=== PATIENT | female | born 1960 | race Caucasian/White ===

== ENCOUNTER 2025-05-07 09:49 | Outpatient (AMB) | payer MEDICARE, BC, SELFPAY ==
--- NOTE | 2025-05-07 10:04 | A.OFFVIS_ITS ---
Vital Signs 05/07/25 10:11 Height 5 ft 2 in Weight 160 lb BMI 29.3 BP 126/74 Blood Pressure Location Rt brachial Position Sitting Pulse 64 Pulse Source Pulse Oximeter Pulse Oximetry (%) 96 Oxygen Delivery Method Room Air Intake Visit Reasons: ENP - Snoring, Apneic Spells Intake Note: Patient presents MANAGER OF CARE Snoring. Patient states snoring but no witnessed apnea/gasping. Can fall sleep easily, fatigued through out the day. Nape during the day 10-30min. Goes to bed at 11-12 wakes up 6-7am. No history of sleep studies. Accompanied by: Self / Same As Patient Allergies No Known Allergies Allergy (Verified 05/07/25 10:13) HPI Comments Details: 64 year old female presents for an evaluation of sleep apnea, she is referred to us by her PCP, Mona Maradiaga. She goes to bed at 11pm to midnight and wakes up at 5-6am, she has 2x bathroom breaks. She snores loudly and denies apneas. She denies morning headaches, she has bruxism, and denies clenching of the jaw. 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 She has been in country [place] 1 week and since then notices her sleep schedule is off. She falls asleep easily and takes naps daily about 15min to 30min. She denies anxiety, can be stressed with over thinking. Her mood is generally good. BP is better managed now. 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 She has chronic low back pain and sciatica. Memory is stable. Diet is stable. She walks daily, goes to the [employer], does yoga and melissa-chi every week. FORMERLY [facility] Medical History Personal history of radiation exposure Follicular lesion of thyroid Low back pain with left-sided sciatica Dyslipidemia Osteopenia Bunion High cholesterol HTN (hypertension) Daytime somnolence Tubular adenoma of colon Multinodular thyroid Family history of cancer Acquired hypothyroidism Thyroid nodule Vitamin D deficiency Surgical History H/O partial thyroidectomy Family History Mother Pancreatic cancer HTN (hypertension) Social History Alcohol intake: never Patient Tobacco Use Status: Former Tobacco user e-Cigarette/Vaping Use: Never Used Physical Exam Vital Signs: Last Vital Signs Pulse 64 05/07/25 10:11 BP 126/74 05/07/25 10:11 Pulse Ox 96 05/07/25 10:11 Oxygen Delivery Method Room Air 05/07/25 10:11 BMI result Body Mass Index 29.3 Const General: cooperative, comfortable and no acute distress Nutritional Appearance: overweight Orientation/consciousness: patient oriented x3 HEENT Face and sinus: Yes face symmetric Teeth and gingiva: other (mallampti score is 3) Eyes Pupils: Equal, round and reactive pupils present Neck Neck: Yes full ROM Resp Effort & Inspection: normal respiratory effort and able to speak in complete sentences Neuro General: patient oriented x3 and moves all extremities Cranial nerves: Yes Equal, round and reactive pupils present, Yes Normal accommodation reflex present, Yes Normal facial strength present, Yes Midline tongue present, Yes Ability to bilaterally rotate head present and Yes Ability to bilaterally elevate shoulders present Cognition (Neuro): normal cognition Motor exam (neuro): 5/5 motor strength present throughout and Normal motor muscle tone present throughout Psych Appearance: grossly normal Thought process: Normal thought process present Assessment & Plan Assessment & Plan (1) Excessive daytime sleepiness: Code(s): G47.19 - Other hypersomnia Category: Medical (2) Chronic lower back pain: Code(s): M54.50 - Low back pain, unspecified; G89.29 - Other chronic pain Category: Medical Qualifiers: Back pain laterality: unspecified Sciatica presence: with sciatica Sciatica laterality: sciatica of left side Qualified Code(s): M54.42 - Lumbago with sciatica, left side; G89.29 - Other chronic pain Plan HST r/o chente Labs r/o deficiencies Low back pain / L>r Orders: Orders RT home sleep study Today G47.19 - Other hypersomnia Comprehensive Met. Panel Today G47.19 - Other hypersomnia Homocysteine Today G47.19 - Other hypersomnia, G47.9 - Sleep disorder, unspecified, R53.83 - Other fatigue Vitamin D 25-OH Total Today G47.19 - Other hypersomnia Vitamin B12 and Folate Today G47.19 - Other hypersomnia TSH reflex Free T4 Today G47.19 - Other hypersomnia Complete Blood Count no Diff Today G47.19 - Other hypersomnia Ferritin Today G47.19 - Other hypersomnia Methylmalonic Acid Today G47.19 - Other hypersomnia, G47.9 - Sleep disorder, unspecified, R53.83 - Other fatigue Patient Instructions: Please complete the following fasting labs to rule out deficiencies. CBC/CMP/ B12/ Vit D/ TSH/ Homocysteine and MMA/ Ferritin. Sleep Hygiene provided: set a scheduled bedtime and wake time to help regulate t he circadian rhythm and balance the release of pituitary hormones. Sleep in a dark room, temperatures below 68 degrees, and no devices n bed. Limit caffeinated products 6 hours prior to bed, and limit fluids 2-4 hours prior to bed. Gentle night yoga, diffusing essential oils, and playing soft music can be relaxing. Coding Level of Care Code New Pt Level 4 (01226) Diagnoses Excessive daytime sleepiness G47.19 Chronic low back pain with left-sided sciatica, unspecified back pain laterality M54.42; G89.29 Back pain laterality: unspecified Sciatica presence: with sciatica Sciatica laterality: sciatica of left side Sleep Questionnaire Difficulty falling asleep: No Difficulty staying asleep?: Yes Number of arousals: 4 Snoring: Yes Witnessed apneas: No Gasping arousals: No Nocturia: No GERD: Yes Vivid dreams: Yes Acting out dreams: No Abnormal behavior in sleep: No Abnormal movements in sleep: No Morning headaches: No Excessive daytime sleepiness: Yes Daytime naps: Yes Restless legs: No Hallucinations: No Sleep paralysis: No Drop attacks: No Sleep Study: No CPAP: No
[2025-05-07 10:11] VITALS: BP 126/74; PULSE 64; O2SAT 96; BMI 29.3
--- OUTSIDE RECORDS SUMMARY | 2025-05-07 11:14 | XMS_ITS | Encounter Summary ---
Author Organization [facility] Address [address] [place] [address] Care Team Providers Care Logistics Administrator Name Role Phone Morgan Harris MD Primary Care Provider Loreta vailable Grace Cespedes DO Primary Care Pro vider Unavailable Encounter Details Date Type Department Care Team Description 12/27/2012 Physician Office Clin Asst Report Medical Records [address] [place] [address] Fredi De León DPM Social History Tobacco Use Types Packs/Day Years Used Date Smoking Tobacco: Former Cigarettes 0.3 Q uit: 02/16/1996 Smokeless Tobacco: Never Alcohol Use Standard Drinks/Week Comments No 0 (1 standard drink = 0.6 oz pur e alcohol) Sex Assigned at Date Recorded Not on file Job Start Date Occupation Industry Not on file Not on file Not on file documented as of this encounter Plan of Treatment Not on file documented as of this encounter Visit Diagnoses Not on filedocumented in this encounter Care Teams Logistics Administrator Relationship Specialty Start Date End Date Morgan Harris MD PCP - General Internal Medicine 09/25/11 01/08/14 Grace Cespedes DO PCP - General Internal Medicine 01/09/14 documented as of this encounter
--- OUTSIDE RECORDS SUMMARY | 2025-05-07 11:14 | XMS_ITS | Encounter Summary ---
Author Organization [facility] Address [address] [place] [address] Care Team Providers Care Monitor Tech Name Role Phone Grace Cespedes DO Primary Care Pro vider Unavailable Encounter Details Date Type Department Care Team Description 08/18/2020 Pt. Non Urgent Medical Question Adult Urgent Care - [address] [address] Fred Hinds MD Social History Tobacco Use Types Packs/Day Years Used Date Smoking Tobacco: Former Cigarettes 0.3 Q uit: 02/16/1996 Smokeless Tobacco: Never Alcohol Use Standard Drinks/Week Comments No 0 (1 standard drink = 0.6 oz pur e alcohol) Sex Assigned at Date Recorded Not on file Job Start Date Occupation Industry Not on file Not on file Not on file COVID-19 Exposure Response Date Recorded In the last month, have you been in contact with someone who was confirmed or suspected to have Coronavirus / COVID-19? No / Unsure 08/17/2020 9:20 AM EST documented as of this encounter Progress Notes * Katia Nielson M.A. - 08/19/2020 11:05 AM ESTFrom: Doalis Gavi To: Fred Hinds MD Sent: 08/18/2020 7:15 PM EST Subject: appointment change This massage is to Endocrinology Department Attn: Yissel I would like to keep my appointment with on August 29 at 4PM. I prefer audio chandrakant. You can reach me under my cell phone - # [phone] Thank you. Gavi Jacobo documented in this encounter Plan of Treatment Not on file documented as of this encounter Visit Diagnoses Not on filedocumented in this encounter Care Teams Monitor Tech Relationship Specialty Start Date End Date Grace Cespedes DO PCP - General Internal Medicine 01/09/14 documented as of this encounter
--- OUTSIDE RECORDS SUMMARY | 2025-05-07 11:14 | XMS_ITS | Encounter Summary ---
Author Organization [facility] Address [address] [place] [address] Care Team Providers Care Brush Fabrication Supervisor Name Role Phone Grace Cespedes DO Primary Care Pro vider Unavailable Reason for Visit * Reason Comments E-prescribe Rx Request Encounter Details Date Type Department Care Team Description 11/17/2020 Refill Adult Medicine [address] [address] Grace Cespedes DO E-prescribe Rx Request Social History Tobacco Use Types Packs/Day Years Used Date Smoking Tobacco: Former Cigarettes 0.3 Q uit: 02/16/1996 Smokeless Tobacco: Never Alcohol Use Standard Drinks/Week Comments No 0 (1 standard drink = 0.6 oz pur e alcohol) Sex Assigned at Date Recorded Not on file Job Start Date Occupation Industry Not on file Not on file Not on file documented as of this encounter Miscellaneous Notes * Telephone Encounter - Stefani Lai M.A. - 11/19/2020 2:19 PM EDT Lab Results Component Value Date NA 140 08/17/2020 K 4.5 08/17/2020 CO2 28 08/17/2020 CL 106 08/17/2020 BUN 15 08/17/2020 CREAT 0.76 08/17/2020 GLU 82 08/17/2020 CA 9.4 08/17/2020 GFR > 60 08/17/2020 Pending appt 01/03/21 * Telephone Encounter - Yunicee Garner - 11/18/2020 9:23 AM EDT Patient would like script to be: E-PRESCRIBED/FAXED TO PHARMACY WHEN WAS THE PATIENT'S LAST APPOINTMENT IN ADULT MEDICINE? 05/24/20 WHEN WAS THE LAST TIME THE PATIENT SAW THEIR PCP? Same as above Does patient have an upcoming appointment? Yes 01/03/21 (THE MEDICATION REQUESTED IS ON THE MED LIST ABOVE) All of the medications requested were on the CURRENT MEDS list Did you check the Pharmacy information above?: YES Patient wants: 90 -day supply Is this a mail order prescription request ? NO If the refill is from a FAXED refill request what is the RX # listed on the fax? N/A Patients current insurance carrier is: Payor: SARIAH/DEJA POS / Plan: PPO $30 [employer] [id number] / ProductType: PPO [id number] documented in this encounter Plan of Treatment Not on file documented as of this encounter Visit Diagnoses Not on filedocumented in this encounter Care Teams Brush Fabrication Supervisor Relationship Specialty Start Date End Date Grace Cespedes DO PCP - General Internal Medicine 01/09/14 documented as of this encounter
--- OUTSIDE RECORDS SUMMARY | 2025-05-07 11:14 | XMS_ITS | Encounter Summary ---
Author Organization [facility] Address [address] [place] [address] Care Team Providers Care [employer] Advisor Name Role Phone Grace Cespedes DO Primary Care Pro vider Unavailable Encounter Details Date Type Department Care Team Description 04/14/2019 Release of Information Medical Records [address] [place] [id number] Abstract, Provider Social History Tobacco Use Types Packs/Day Years [...] on filedocumented in this encounter Care Teams [employer] Advisor Relationship Specialty Start Date End Date Grace Cespedes DO PCP - General Internal Medicine 01/09/14 documented as of this encounter
--- OUTSIDE RECORDS SUMMARY | 2025-05-07 11:14 | XMS_ITS | Encounter Summary ---
Author Organization [facility] Address [address] [place] [address] Care Team Providers Care Supervisor Riveting Name Role Phone Grace Cespedes DO Primary Care Pro vider Unavailable Encounter Details Date Type Department Care Team Description 03/02/2014 Orders Only Adult Medicine [address] [address] Grace Cespedes DO Dyslipidemia (Primary Dx) Social History Tobacco Use Types Packs/Day Years [...] documented as of this encounter Visit Diagnoses Diagnosis Dyslipidemia- Primary Other and unspecified hyperlipidemia documented in this encounter Care Teams Supervisor Riveting Relationship Specialty Start Date End Date Grace Cespedes DO PCP - General Internal Medicine 01/09/14 documented as of this encounter
--- OUTSIDE RECORDS SUMMARY | 2025-05-07 11:14 | XMS_ITS | Encounter Summary ---
Author Organization [facility] Address [address] [place] [address] Care Team Providers Care Combustion Analyst Name Role Phone Morgan Harris MD Primary Care Provider Loreta vailable Grace Cespedes DO Primary Care Pro vider Unavailable Encounter Details Date Type Department Care Team Description 12/13/2012 Readiness Paraprofessional Report Medical Records [address] [place] [address] Fredi De León DPM Social History Tobacco [...] on filedocumented in this encounter Care Teams Combustion Analyst Relationship Specialty Start Date End Date Morgan Harris MD PCP - General Internal Medicine 09/25/11 01/08/14 Grace Cespedes DO PCP - General Internal Medicine 01/09/14 documented as of this encounter
--- OUTSIDE RECORDS SUMMARY | 2025-05-07 11:14 | XMS_ITS | Clinical Summary ---
Author Organization [facility] Address [address] [place] [address] Care Team Providers Care Excelsior Machine Tender Name Role Phone Grace Cespedes DO Primary Care Pro vider Unavailable Allergies No known active allergies Medications Medication Sig Dispensed Refills Start Date End Date Status hydrochlorothiazide (MICROZIDE) 12.5 MG capsule TAKE 1 CAPSULE BY MOUTH EVERY DAY 90 capsule 1 02/12/2021 Active atenolol (TENORMIN) 50 MG tablet TAKE 1 TABLET BY MOUTH TWICE A DAY 180 tablet 1 02/25/2021 Active levothyroxine (SYNTHROID, LEVOTHROID) 25 MCG tablet Take 1 tablet by mouth daily for 120 days. 90 tablet 3 02/25/2021 Active Dguqmah-Quiieguwgj-A itamin D (Vitamin D3/Calcium/Phosphoru s) 120-100-78 UNIT-MG TabIndications:Histo ry of osteopenia,History of vitamin D deficiency Take 1 Tablet by mouth daily. 90 Tablet 3 01/25/2024 Active omeprazole (PRILOSEC) 20 MG capsule Take 1 Capsule by mouth 2 times daily for 14 days. 28 Capsule 0 05/26/2024 Active Active Problems Problem Noted Date Ganglion cyst of wrist, left 11/29/2018 Last Assessment & Plan: Referred to Gen Surg for discussion of surgical removal. Multinodular goiter 05/20/2018 Family history of cancer- genetic testin g negative 201405/15/2018 Osteopenia 09/02/2016 Essential hypertension, benign 6 Last Assessment & Plan: Has appt for follow up in April with Dr. Carey and can keep this appt. Vitamin D deficiency Dyslipidemia Resolved Problems Problem Noted Date Resolved Date Family history of pancreatic cancer 11/15/2014 05/15/2018 Family history of ovarian cancer 11/15/2014 05/15/2018 Family history of liver cancer 11/15/2014 1 Special screening for malignant neoplasms, colon 09/23/2009 05/15/2018 Overview: Negative colonoscopy 09/23/2009, no colon cancer screening needed for 10 years. Colaris negative Subserous leiomyoma of uterus 12/21/2005 Hypertension 08/22/2013 Immunizations Name Administration Dates Next Due Tdap 05/23/2009 Family History Medical History Relation Name Comments well Father CA of Pancreas Mother Cancer of the Pancreas Mother Uterine Cancer Mother's side 1 Aunt CA Liver Mother's side 2 aunt CA Lung Mother's side 3 Uncle CA Lung Mother's side 4 Aunt CA Breast Other mat aunt CA Colon Negative Hx CA Ovarian Negative Hx Cancer of the Prostate Negative Hx Relation Name Status Comments Father Mother Mother's side 1 Mother's side 2 Mother's side 3 Mother's side 4 Other mat aunt Social History Tobacco Use Types Packs/Day Years Used Date Smoking Tobacco: Former Cigarettes 0.3 Q uit: 02/16/1996 Smokeless Tobacco: Never Tobacco Cessation:Counseling Given: Not Answered Alcohol Use Standard Drinks/Week Comments No 0 (1 standard drink = 0.6 oz pur e alcohol) Sex Assigned at Date Recorded Not on file Job Start Date Occupation Industry Not on file Not on file Not on file Last Filed Vital Signs Vital Sign Reading Time Taken Comments Blood Pressure 122/75 05/09/2024 1:01 PM EDT Pulse 82 05/09/2024 1:01 PM EDT Temperature 36.4 C (97.6 F) 09/17/2023 9:11 AM EST Respiratory Rate 12 12/14/2022 3:06 PM EDT Oxygen Saturation 98% 05/09/2024 1:01 PM EDT Inhaled Oxygen Concentration - - Weight 70.8 kg (156 lb) 05/09/2024 1:01 PM EDT Height 160 cm (5' 3 ) 05/09/2024 1:01 PM EDT Body Mass Index 27.63 05/09/2024 1:01 PM EDT Plan of Treatment Health Maintenance Due Date Last Done Comments Covid-19 Vaccine (#1) 06/04/1961 DEPRESSION SCREEN 1970 SHINGLES VACCINE (1 of 2) 2008 DTAP/TDAP/TD (2 - Td or Tdap) 05/23/2019 05/23/2009 FALL RISK ASSESSMENT 12/03/2023 PNEUMOCOCCAL VACCINE (1 - PCV) 12/03/2023 BMI CHECK/ADVISE 08/02/2024 01/25/2024, , 12/14/2022, Additional history exists MAMMOGRAM 01/13/2025 01/14/2024, 09/2022, 12/25/2021, Additional history exists INFLUENZA (#1) 2025 04/16/2020 (Refu sed), 10/04/2017 (Refused) COLON CANCER SCREENING 05/29/2025 0 (Completed), 05/29/2020, 09/23/2009 CHOLESTEROL SCREENING 08/17/2025 08/17/2020 , 04/18/2020, 04/08/2019, Additional history exists BONE DENSITY SCREENING 01/05/2027 01/05/2022, 2015 HEPATITIS C SCREENING Completed 12/20/2012 Care Teams Excelsior Machine Tender Relationship Specialty Start Date End Date Grace Cespedes DO PCP - General Internal Medicine 01/09/14
--- OUTSIDE RECORDS SUMMARY | 2025-05-07 11:14 | XMS_ITS | Encounter Summary ---
Author Organization [facility] Address [address] [place] [address] Care Team Providers Care Refueling Ramp Supervisor Name Role Phone Morgan Harris MD Primary Care Provider Loreta vailable Grace Cespedes DO Primary Care Pro vider Unavailable Encounter Details Date Type Department Care Team Description 06/28/2013 Orders Only Adult Medicine [address] [address] Grace Cespedes DO Vitamin d deficiency (Primary Dx) Social History Tobacco Use Types [...] as of this encounter Visit Diagnoses Diagnosis Vitamin D deficiency- Primary Unspecified vitamin D deficiency documented in this encounter Care Teams Refueling Ramp Supervisor Relationship Specialty Start Date End Date Morgan Harris MD PCP - General Internal Medicine 09/25/11 01/08/14 Grace Cespedes DO PCP - General Internal Medicine 01/09/14 documented as of this encounter
--- OUTSIDE RECORDS SUMMARY | 2025-05-07 11:14 | XMS_ITS | Encounter Summary ---
Author Organization [facility] Address [address] [place] [address] Care Team Providers Care Seed Laboratory Technician Name Role Phone Grace Cespedes DO Primary Care Pro vider Unavailable Encounter Details Date Type Department Care Team Description 05/31/2020 Orders Only Medical Records [address] [place] [address] Claudia Morse MD Social History Tobacco Use Types Packs/Day [...] have Coronavirus / COVID-19? No / Unsure 05/30/2020 3:24 PM EDT documented as of this encounter Plan of Treatment Not on file documented as of this encounter Procedures Procedure Name Priority Date/Time Associated Diagnosis Comments OUTSIDE PATHOLOGY Routine 05/29/2020 documented in this encounter Results * OUTSIDE PATHOLOGY (05/29/2020) Claudia Morse MD OUTSIDE LAB documented in this encounter Visit Diagnoses Not on filedocumented in this encounter Care Teams Seed Laboratory Technician Relationship Specialty Start Date End Date Grace Cespedes DO PCP - General Internal Medicine 01/09/14 documented as of this encounter
--- OUTSIDE RECORDS SUMMARY | 2025-05-07 11:14 | XMS_ITS | Encounter Summary ---
Author Organization [facility] Address [address] [place] [address] Care Team Providers Care Watermelon Harvesting Supervisor Name Role Phone Grace Cespedes DO Primary Care Pro vider Unavailable Reason for Visit * Reason Comments E-prescribe Rx Request Encounter Details Date Type Department Care Team Description 03/19/2020 Refill Adult Medicine [address] [address] Grace Cespedes DO E-prescribe Rx Request Social [...] encounter Miscellaneous Notes * Telephone Encounter - Cinthya Washington L.P.N. - 03/19/2020 1:24 PM EDT Per your office note 11/28, pt was to increase to 50mg daily Lab Results Component Value Date NA 139 10/24/2019 K 4.6 10/24/2019 CO2 23 10/24/2019 CL 105 10/24/2019 BUN 14 10/24/2019 CREAT 0.82 10/24/2019 GLU 82 10/24/2019 CA 10.2 10/24/2019 GFR > 60 10/24/2019 * Telephone Encounter - Kalee George - 03/19/2020 8:03 AM EDT Patient would like script to be: E-PRESCRIBED/FAXED TO PHARMACY WHEN WAS THE PATIENT'S LAST APPOINTMENT IN ADULT MEDICINE? 11/29/2019 WHEN WAS THE LAST TIME THE PATIENT SAW THEIR PCP? Same as above Does patient have an upcoming appointment? Yes 04/16/2020 (THE MEDICATION REQUESTED IS ON THE MED [...] N/A Patients current insurance carrier is: Payor: [employer] / Plan: PPO $30 [employer] [id number] / Product Type: PPO [id number] documented in this encounter Plan of Treatment Not on file documented as of this encounter Visit Diagnoses Not on filedocumented in this encounter Care Teams Watermelon Harvesting Supervisor Relationship Specialty Start Date End Date Grace Cespedes DO PCP - General Internal Medicine 01/09/14 documented as of this encounter
--- OUTSIDE RECORDS SUMMARY | 2025-05-07 11:14 | XMS_ITS | Encounter Summary ---
Author Organization [facility] Address [address] [place] [address] Care Team Providers Care Remote Inpatient Coder Name Role Phone Grace Ghotra DO Primary Care Pro vider Reason for Visit * Reason Onset Date Comments special procedure 03/22/2025 Encounter Details Date Type Department Care Team ([facility] st Contact Info) Description 03/22/2025 Telephone Gastroenterology - [place] 175 [facility] 175 [facility] [address] [place] [phone] Brooklynn Dan NP 175 [facility] [address] [place] [address] Social History Tobacco Use Types Packs/Day Years Used Date Smoking Tobacco: Former Cigarettes Q uit: 02/16/1996 Smokeless Tobacco: Never Alcohol Use Standard Drinks/Week Comments No 0 (1 standard drink = 0.6 oz pur e alcohol) Comments No Sex and Gender Information Value Date Recorded Sex Assigned at Not on file Legal Sex Female 8:54 PM EST Gender Identity Not on file Sexual Orientation Not on file documented as of this encounter Progress Notes * Sushil Barnes - 05/03/2025 1:49 PM EDT SCHEDULED * Karlee Rosales - 05/03/2025 11:01 AM EDT Patient is returning call to schedule colonoscopy * Radha Garrett MA - 03/29/2025 8:44 AM EDT 3rd attempt to schedule an appointment patient left message to call back and letter sent * Shoshana Browne MA - 03/27/2025 10:57 AM EDT 2nd attempt to schedule an appointment patient left message to call back * Radha Esrtella - 03/26/2025 10:14 AM EDT Patient calling again to schedule colonoscopy * Dviya Montoya - 03/26/2025 8:59 AM EDT Patient called back to schedule colonoscopy. * Sushil Barnes - 03/22/2025 1:23 PM EDT 1st attempt to schedule an appointment patient left message to call back HX OF POLYPS - ANY * Brooklynn Dan NP - 03/22/2025 12:48 PM EDT Please schedule surveillance colonoscopy for colon polyps to be completed sometimes in June 2025. Thank you. documented in this encounter Plan of Treatment Upcoming Encounters Date Type Department Care Team (Late st Contact Info) Description 06/18/2025 12:[address] [facility] Endoscopy [address] [place] [phone] Ana M Watson MD 175 [facility] [address] [place] [address] documented as of this encounter Goals Goal Patient Goal Type Associated Problems Recent Progress Patient-Stated? Author Autogenera marion Goal Care Plan Autogenerated Problem No HerbertAlicia hancockerine Curtis documented as of this encounter Visit Diagnoses Not on filedocumented in this encounter Additional Health Concerns Active Problems Noted Date Diagnosed Date Autogenerated Problem 05/03/2025 documented as of this encounter Care Teams Remote Inpatient Coder Relationship Specialty Start Date End Date Grace Ghotra DO [address] [phone] PCP - General Internal Medicine 01/09/14 documented as of this encounter
--- OUTSIDE RECORDS SUMMARY | 2025-05-07 11:14 | XMS_ITS | Encounter Summary ---
Author Organization [facility] Address [address] [place] [address] Care Team Providers Care Jute Bag Sewer Name Role Phone Grace Cespedes DO Primary Care Pro vider Unavailable Encounter Details Date Type Department Care Team Description 10/29/2019 Orders Only Adult Medicine [facility] [address] [place] [address] Fred Hinds MD Multinodular goiter (Primary Dx) Social History Tobacco Use Types [...] on file documented as of this encounter Results * TSH (03/05/2020 2:58 PM EDT) TSH 3.81 0.40 - 4.00 uIU/ml 03/05/2020 6:58 PM EDT [facility] 03/05/2020 2:58 PM EDT 03/05/2020 3:02 PM EDT Fred Hinds MD LAB [facility] documented in this encounter Visit Diagnoses Diagnosis Multinodular goiter- Primary Nontoxic multinodular goiter documented in this encounter Care Teams Jute Bag Sewer Relationship Specialty Start Date End Date Grace Cespedes DO PCP - General Internal Medicine 01/09/14 documented as of this encounter
--- OUTSIDE RECORDS SUMMARY | 2025-05-07 11:14 | XMS_ITS ---
Author Name [facility] ([place] [place]) Organization Unknown Care Team Organization Name Specialty Phone Email Start Date End Da te [facility] Loren Briceno Primary Care 06/09/2022 03/20/2024
--- OUTSIDE RECORDS SUMMARY | 2025-05-07 11:14 | XMS_ITS | Encounter Summary ---
Author Organization [facility] Address [address] [place] [address] Care Team Providers Care Wind Technician Name Role Phone Grace Cespedes DO Primary Care Pro vider Unavailable Reason for Referral * Non CLIFF (Routine) - Authorized/Booked Specialty Diagnoses / Procedures Referred By Mckenzie thomas Referred To Contact Endocrinology Procedures REFERRAL TO ENDOCRINOLOGY Grace Cespedes DO [address] [place] [address] [facility]/[address] [address] Referral ID Status Reason Start Date Expiration Date V isits Requested Visits Authorized [id number] Authorized/ Booked 10/18/2019 01/18/2020 1 1 Encounter Details Date Type Department Care Team Description 10/18/2019 Orders Only Adult Medicine [address] [address] Grace Cespedes DO Social History Tobacco Use Types Packs/Day Years [...] on filedocumented in this encounter Care Teams Wind Technician Relationship Specialty Start Date End Date Grace Cespedes DO PCP - General Internal Medicine 01/09/14 documented as of this encounter
--- OUTSIDE RECORDS SUMMARY | 2025-05-07 11:14 | XMS_ITS | Encounter Summary ---
Author Organization [facility] Address [address] [place] [address] Care Team Providers Care Clean Out Driller Name Role Phone Morgan Harris MD Primary Care Provider Loreta vailable Grace Cespedes DO Primary Care Pro vider Unavailable Encounter Details Date Type Department Care Team Description 10/30/2011 Release of Information Medical Records [address] [place] [phone] Abstract, Provider Social History Tobacco Use Types [...] on filedocumented in this encounter Care Teams Clean Out Driller Relationship Specialty Start Date End Date Morgan Harris MD PCP - General Internal Medicine 09/25/11 01/08/14 Grace Cespedes DO PCP - General Internal Medicine 01/09/14 documented as of this encounter
--- OUTSIDE RECORDS SUMMARY | 2025-05-07 11:15 | XMS_ITS | Clinical Summary ---
Author Organization [facility] [address] [place] [address] [place] [phone] Phone Care Team Providers Care Floorman Name Role Phone JosecarolinaGrace Lechuga DO Primary Care Pro vider Allergies No known active allergies Medications atenoloL (TENORMIN) 50 mg tablet Take 1 tablet (50 mg total) by mouth 2 (two) times a day. 02/25/2021 Active hydroCHLOROthia zide (MICROZIDE) 12.5 mg capsule Take 1 capsule (12.5 mg total) by mouth 1 (one) time each day. 02/12/2021 Active levothyroxine (SYNTHROID, LEVOTHROID) 25 mcg tablet Take 1 tablet (25 mcg total) by mouth 1 (one) time each day. for 120 days. 02/25/2021 Active Active Problems Problem Noted Date Diagnosed Date Vitamin D deficiency 07/05/2024 Dyslipidemia 07/05/2024 Ganglion cyst of wrist, left 11/29/2018 Overview (07/05/2024): Last Assessment & Plan: Referred to Gen Surg for discussion of surgical removal. Multinodular goiter 05/20/2018 Osteopenia 09/02/2016 Essential hypertension, benign 07/30/2006 Overview (07/05/2024): Last Assessment & Plan: Has appt for follow up in April with Dr. Carey and can keep this appt. Encounters Date Type Department Care Team Description 03/22/2025 9:20 AM EDT Office Visit Gastroenterology - [place] [address] [facility] [address] [place] [address] Brooklynn Dan NP History of Helicobacter pylori infection (Primary Dx); History of adenomatous polyp of colon; History of hemorrhoids 03/22/2025 Telephone Gastroenterology [facility] [address] [facility] [address] [place] [address] Brooklynn Dan NP from Last 3 Months Immunizations Immunization Administration Dates Next Due Tdap Tetanus diptheria acell ular pertussis (Boostrix; Adacel) 7yo and older 05/23/2009 Surgical History Surgery Date Site/Laterality Comments COLONOSCOPY 09/23/2009 PROCEDURE: [place] COLONOSCOPY FLX DX W/COLLJ SPEC WHEN PFRMD; COMMENT: Normal OTHER SURGICAL HISTORY PROCEDURE: HISTORICAL TOTAL HYSTERECTOMY W/O BSO; COMMENT: fibroids OTHER SURGICAL HISTORY 01/23/2019 Left PROCEDURE: [place] TOTAL THYROID LOBEC UNI W/CONTRALAT STOT LOBEC; COMMENT: jack BREAST BIOPSY 09/2015 Left PROCEDURE: BX BREAST; PERC NEEDLE CORE W/IMAG GUID; COMMENT: lt. fna-cyst COLONOSCOPY 05/29/2020 PROCEDURE: HISTORICAL COLONOSCOPY; COMMENT: recto-sigmoid jxn polyp - tubular adenoma HYSTERECTOMY Medical History Medical History Date Comments Special screening for malign ant neoplasms, colon 09/23/2009 DX:Special screening for mal ignant neoplasms, colon Hypertension DX:Hypertension Dyslipidemia DX:Dyslipidemia Vitamin D deficiency DX:Vitamin D deficiency Genetic screening DX:Genetic scr eening; COMMENT: reports normal in 2014 BRCA negative 2014 DX:BRCA negative Multinodular goiter 05/20/2018 DX:Multinodu lar goiter Family History Medical History Relation Name Comments Other: well Father Uterine cancer Mother's side 1 Aunt Liver cancer Mother's side 2 aunt Lung cancer Mother's side 3 Uncle Lung cancer Mother's side 4 Aunt Breast cancer Other mat aunt Colon cancer Neg Hx Ovarian cancer Neg Hx Prostate cancer Neg Hx Relation Name Status Comments Father Mother [...] on file Sexual Orientation Not on file Obstetrics History Para Term AB IAB SAB Ectopic Multiple Livin g Live Births 2 2 2 2 Date Outcome GA Total Labor Labor/2nd/3rd Weight Sex Type Anes PTL Azalia A1 A5 Name Clin Term Term Last Filed Vital Signs Vital Sign Reading Time Taken Comments Blood Pressure 138/70 03/22/2025 9:17 AM EDT Pulse 70 03/22/2025 9:17 AM EDT Temperature - - Respiratory Rate - - Oxygen Saturation 98% 03/22/2025 9:17 AM EDT Inhaled Oxygen Concentration - - Weight 73 kg (161 lb) 03/22/2025 9:17 AM EDT Height 160 cm (5' 3 ) 05/09/2024 1:01 PM EDT Body Mass Index 28.52 05/09/2024 1:01 PM EDT Plan of Treatment Upcoming Encounters Date Type Department Care Team (Late st Contact Info) Description 06/18/2025 12:15 PM EST Appointment [facility] Endoscopy [address] [place] [address] Ana M Watson MD 175 [facility] [address] [place] [address] Health Maintenance Due Date Last Done Comments Pneumococcal Vaccine: 50+ Years (1 of 1 - PCV) 2008 Zoster Vaccines (1 of 2) 2008 DTaP,Tdap,and Td Vaccines (2 - Td or Tdap) 05/23/2019 05/23/2009 Medicare Annual Wellness Visit 07/10/2022 Social Influencers of Health Screening 07/10/2022 Hypertension/CHF/CAD Annual BMP Blood Test 07/17/2022 01/03/2021 Falls Risk Assessment 12/03/2023 Depression Screening 08/02/2024 COVID-19 Vaccine ( season) 2025 09/20/2021, 03/26/2021 Influenza Vaccine (#1) 2025 Colorectal Cancer Screening: Colonoscopy 05/29/2025 05/29/2020 Cholesterol Screening (Lipid Panel) 08/17/2025 08/17/2020 Osteoporosis Screening (Bone Density Screening) 01/05/2027 01/05/2022 Breast Cancer Screening 01/24/2027 01/25/20 25, 01/14/2024, 01/14/2024, Additional history exists RSV Immunization Adult Patients (1 - 1-dose 75+ series) 2033 Hepatitis C Screening Completed 12/20/2012 HIB Vaccines Aged Out No longer eligi ble based on patient's age to complete this topic HPV Vaccines Aged Out No longer eligi ble based on patient's age to complete this topic Hepatitis A Vaccines Aged Out No long er eligible based on patient's age to complete this topic Hepatitis B Vaccines Aged Out No long er eligible based on patient's age to complete this topic IPV Vaccines Aged Out No longer eligi ble based on patient's age to complete this topic MMR Vaccines Aged Out No longer eligi ble based on patient's age to complete this topic Meningococcal ACWY Vaccine Aged Out N o longer eligible based on patient's age to complete this topic Meningococcal B Vaccine Aged Out No l onger eligible based on patient's age to complete this topic RSV Immunization Patients Under 20 months Aged Out No longer eligible based on patient's age to complete this topic Varicella Vaccines Aged Out No longer eligible based on patient's age to complete this topic Goals Goal Patient Goal Type Associated Problems Recent Progress Patient-Stated? Author Autogenera marion Goal Care Plan Autogenerated Problem No Rebeca Godinez Procedures Procedure Name Priority Date/Time Associated Diagnosis Comments MG MAMMO DIGITAL SCREENING W POP BILAT Routine 01/24/2025 3:24 PM EDT Encounter for screening mammogram for breast cancer DXA BONE DENSITY STUDY 1+ SITS AXIAL SKEL Routine 01/05/2022 3:48 PM EDT Asymptomatic menopausal state ANNUAL BMP BLOOD TEST Routine 01/03/2021 LIPID PANEL Routine 08/17/2020 COLONOSCOPY Routine 05/29/2020 HEPATITIS C SCREENING Routine 12/20/2012 from Last 3 Months or Most Recently Relevant to Health Maintenance Results * MG Mammo Digital Screening w Pop bilat (01/24/2025 3:24 PM EDT) Anatomical Region Laterality Modality Breast Bilateral Mammography 01/25/2025 1:50 PM EDT Impressions 01/25/2025 2:59 PM EDT 1. No mammographic evidence of malignancy 2. Scattered fibroglandular tissue BI-RADS CATEGORY: 2 - BENIGN RECOMMENDATION: Screening bilateral mammogram is recommended in 1 year. Mammo Location: [facility], [address] [place] [address], [id number], . -------- FINAL REPORT -------- Dictated By: Tiffanie Roman Dictated Date: 01/25/2025 13:50 ET Assigned Physician: Tiffanie Roman Reviewed and Electronically Signed By: Tiffanie Roman Signed Date: 01/25/2025 14:59 ET Workstation ID: [id number] Transcribed By: Self Edit Transcribed Date: 01/25/2025 13:52 ET Narrative 01/25/2025 2:59 PM EDT A BILATERAL DIGITAL 3D SCREENING MAMMOGRAPHY HISTORY: Routine screening. COMPARISON: Multiple priors dating back to 09/30/2020 Technique: Bilateral full field digital mammography (3D) was performed using standard CC and MLO projections CAD was used to evaluate this mammogram. FINDINGS: Right: No suspicious masses, groups of microcalcification or areas of architectural distortion identified. Stable typically benign parenchymal asymmetries. Left: No suspicious masses, groups of microcalcification or areas of architectural distortion identified. Stable typically benign parenchymal asymmetries. BREAST DENSITY: B - There are scattered areas of fibroglandular density. Procedure Note Tiffanie Roman MD - 01/25/2025 A BILATERAL DIGITAL 3D SCREENING MAMMOGRAPHY HISTORY: Routine screening. COMPARISON: Multiple priors dating back to 09/30/2020 Technique: Bilateral full field digital mammography (3D) was performedusing standard CC and MLO projections CAD was used to evaluate this mammogram. FINDINGS: Right: No suspicious masses, groups of microcalcification or areas ofarchitectural distortion identified. Stable typically benign parenchymalasymmetries. Left: No suspicious masses, groups of microcalcification or areas ofarchitectural distortion identified. Stable typically benign parenchymalasymmetries. BREAST DENSITY: B - There are scattered areas of fibroglandular density. IMPRESSION: 1. No mammographic evidence of malignancy 2. Scattered fibroglandular tissue BI-RADS CATEGORY: 2 - BENIGN RECOMMENDATION: Screening bilateral mammogram is recommended in 1 year. Mammo Location: [facility], [address] [place] [address], [id number], . -------- FINAL REPORT -------- Dictated By: Tiffanie Roman Dictated Date: 01/25/2025 13:50 ET Assigned Physician: Tiffanie Roman Reviewed and Electronically Signed By: Tiffanie Roman Signed Date: 01/25/2025 14:59 ET Workstation ID: [id number] Transcribed By: Self Edit Transcribed Date: 01/25/2025 13:52 ET Grace Ghotra DO IMG BI PROCEDURES Final Result * DXA BONE DENSITY STUDY 1+ SITS AXIAL SKEL (01/05/2022 3:48 PM EDT) Anatomical Region Laterality Modality Bone Densitometr y 11/11/2021 10:1 3 AM EDT Narrative 01/05/2022 7:12 PM EDT BONE DENSITY SCAN (DEXA): FINDINGS: Lumbar Spine T-score is -1.4. (SD relative to 20-29 y/o adult) Z-score is 0.2. (SD relative to age matched peers) This is considered osteopenia by WHO criteria. Left Hip T-score is -1.6. Z-score is -0.2. This is considered osteopenia by WHO criteria. Comparison exam(s): 08/14/2015. No statistically significant change in bone mineral density. IMPRESSION: IMPRESSION: Osteopenia by WHO criteria. This patient has a 8.5% risk of major osteoporotic fracture and a 0.8% risk of hip fracture over the next 10 years. (World Health Organization Fracture Risk Assessment) The [facility] Department of Internal Medicine recommends using National Osteoporosis Foundation (NOF) guidelines in treatment decisions related to osteoporosis. NOF guidelines suggest considering treatment for postmenopausal women and men aged 50 or older presenting with the following: History of hip or vertebral fracture. T-score = -2.5 (DXA) at the femoral neck, total hip, or spine, after appropriate evaluation to exclude secondary causes. Low bone mass (T-score between -1.0 and -2.5 at the femoral neck or spine) AND a 10-year probability of a hip fracture = 3% OR a 10-year probability of a major osteoporosis-related fracture = 20% based on the [place]-adapted WHO algorithm Please note that all treatment decisions require clinical judgment and consideration of individual patient factors, including patient preferences, co-morbidities, previous drug use, risk factors not captured in the FRAX model (e.g., frailty, falls, vitamin D deficiency, increased bone turnover, interval significant decline in bone density) and possible under- or over-estimation of fracture risk by FRAX. Optional alternative screening schedule based on giuseppe Gayle., [facility] August 20, 2011 for patients with osteopenia (based on hip BMD T-score) is as follows: * advanced osteopenia (T scores -2.00 to -2.49), BMD testing every year * moderate osteopenia (T scores -1.50 to -1.99), BMD testing every 5 years mild osteopenia or normal BMD (T scores -1.50 and higher), BMD testing every 15 years Procedure Note Shruthi Nguyen MD - 07/21/2022 BONE DENSITY SCAN (DEXA): FINDINGS: Lumbar Spine T-score is -1.4. (SD relative to 20-29 y/o adult) Z-score is 0.2. (SD relative to age matched peers) This is considered osteopenia by WHO criteria. Left Hip T-score is -1.6. Z-score is -0.2. This is considered osteopenia by WHO criteria. Comparison exam(s): 08/14/2015. No statistically significant change inbone mineral density. IMPRESSION: IMPRESSION: Osteopenia by WHO criteria. This patient has a 8.5% risk of majorosteoporotic fracture and a 0.8% risk of hip fracture over the next 10 years. (World HealthOrganization Fracture Risk Assessment) The [facility] Department of Internal Medicine recommendsusing National Osteoporosis Foundation (NOF) guidelines in treatment decisions related toosteoporosis. NOF guidelines suggest considering treatment for postmenopausal women and menaged 50 or older presenting with the following: History of hip or vertebral fracture. T-score = -2.5 (DXA) at the femoral neck, total hip, or spine, afterappropriate evaluation to exclude secondary causes. Low bone mass (T-score between -1.0 and -2.5 at the femoral neck or spine)AND a 10-year probability of a hip fracture = 3% OR a 10-year probability of a majorosteoporosis-related fracture = 20% based on the [place]-adapted WHO algorithm Please note that all treatment decisions require clinical judgment andconsideration of individual patient factors, including patient preferences, co- morbidities,previous drug use, risk factors not captured in the FRAX model (e.g., frailty, falls, vitaminD deficiency, increased bone turnover, interval significant decline in bone density) andpossible under- or over-estimation of fracture risk by FRAX. Optional alternative screening schedule based on giuseppe Gayle., [facility] for patients with osteopenia (based on hip BMD T-score) is as follows: * advanced osteopenia (T scores -2.00 to -2.49), BMD testing every year * moderate osteopenia (T scores -1.50 to -1.99), BMD testing every 5years mild osteopenia or normal BMD (T scores -1.50 and higher), BMD testingevery 15 years Grace Ghotra DO IM DXA PROCEDURE S Final Result * Annual BMP Blood Test (01/03/2021) [facility] Annual BMP Blood Test Abstracted Historical Provider HEALTH MAINTENANCE Final Result * (ABNORMAL) Lipid panel (08/17/2020) [facility] LDL/HDL Ratio 4 0 - 4 Triglycerides 281(A) 0 - 150 mg/dL Cholesterol 244(A) 0 - 200 mg/dL HDL 57 >=40 mg/dL LDL Cholesterol 131(A) 0 - 100 mg/dL Blood Venous blood specimen / Unknown Result [facility] Historical Provider LAB BLOOD ORDERABLES Doreen l Result * Colonoscopy (05/29/2020) Colonoscopy No interpretation , abstracted Anatomical Region Laterality Modality Other Historical Provider HEALTH MAINTENANCE Final Result * Hepatitis C Screening (12/20/2012) Hepatitis C Screening Abstracted [facility] [place] HEALTH MAINTENANCE Final Result from Last 3 Months or Most Recently Relevant to Health Maintenance Additional Health Concerns Active Problems Noted Date Diagnosed Date Autogenerated Problem 05/03/2025 Insurance MEDICARE [facility] Care Teams Floorman Relationship Specialty Start Date End Date Grace Ghotra DO [facility] [address] [place] [phone] PCP - General Internal Medicine 01/09/14
--- OUTSIDE RECORDS SUMMARY | 2025-05-07 11:15 | XMS_ITS | Clinical Summary ---
Author Organization [facility] Address [address] [place] [address] Care Team Providers Care Information Technology Technician Name Role Phone Grace Cespedes DO Primary Care P rovider Allergies No known active allergies Medications Medication Sig Dispensed Refills Start Date End Date Status atenolol (TENORMIN) tablet 25 mg Take 25 mg by mouth daily. 1 03/07/2019 Active clotrimazole-betameth asone (LOTRISONE) cream Apply to affected area twice daily 0 04/16/2020 Active clotrimazole-betameth asone (LOTRISONE) cream APPLY TO AFFECTED AREA TWICE A DAY 0 04/16/2020 Active atenolol (TENORMIN) tablet 50 mg Take 50 mg by mouth. 0 04/16/2020 Active Active Problems Problem Noted Date Diagnosed Date Ganglion cyst of volar aspect of left wrist 04/03 Degenerative arthritis STT joint left wrist 04/03 Primary osteoarthritis of fi rst carpometacarpal joint of left hand 04/26/2019 Family History Medical History Relation Name Comments Cancer Mother Relation Name Status Comments Mother Social History Tobacco Use Types Packs/Day Years Used Date Smoking Tobacco: Never Smokeless Tobacco: Never Alcohol Use Standard Drinks/Week Comments No 0 (1 standard drink = 0.6 oz pur e alcohol) Sex and Gender Information Value Date Recorded Sex Assigned at Not on file Gender Identity Not on file Sexual Orientation Not on file Last Filed Vital Signs Vital Sign Reading Time Taken Comments Blood Pressure - - Pulse - - Temperature - - Respiratory Rate - - Oxygen Saturation - - Inhaled Oxygen Concentration - - Weight 68 kg (150 lb) 04/26/2019 9:00 AM EDT Height 157.5 cm (5' 2 ) 04/26/2019 9:00 AM EDT Body Mass Index 27.44 04/26/2019 9:00 AM EDT Plan of Treatment Health Maintenance Due Date Last Done Comments Hepatitis C Screening 1960 COVID-19 Vaccine (#1) 06/04/1959 Depression Screening 1970 BMI Counseling 1976 Preventative Health Evaluation 1976 Colon Cancer Screening (Colonoscopy) 12/03/2003 Breast Cancer Screening (Mammogram) 2008 Shingrix-Zoster Vaccine (1 of 2) 2008 DTap / Tdap / Td (2 - Td or Tdap) 05/23/2019 009 Fall Risk Assessment 12/03/2023 Osteoporosis Screening (DEXA Scan) 12/03/2023 Pneumococcal Vaccine (1 of 1 - PCV) 12/03/2023 Influenza Vaccine (#1) 2025 RSV Adult > 60+ Yrs or Pregn ant (1 - 1-dose 75+ series) 2033 Hepatitis B Vaccines Aged Out No long er eligible based on patient's age to complete this topic RSV Ped < 20 months Aged Out No longe r eligible based on patient's age to complete this topic Care Teams Information Technology Technician Relationship Specialty Start Date End Date Grace Cespedes DO PCP - General Bank Courier 03/30/19
--- OUTSIDE RECORDS SUMMARY | 2025-05-07 11:15 | XMS_ITS | Encounter Summary ---
Author Organization [facility] Address [address] [place] [address] Care Team Providers Care Heater Mechanic Name Role Phone Grace Cespedes DO Primary Care Pro vider Unavailable Encounter Details Date Type Department Care Team Description 01/23/2019 Hospital Medical Records [address] [place] [address] Sandhya Knowles MD Social History Tobacco Use Types Packs/Day [...] on filedocumented in this encounter Care Teams Heater Mechanic Relationship Specialty Start Date End Date Grace Cespedes DO PCP - General Internal Medicine 01/09/14 documented as of this encounter
--- OUTSIDE RECORDS SUMMARY | 2025-05-07 11:15 | XMS_ITS | Encounter Summary ---
Author Organization [facility] Address [address] [place] [address] Care Team Providers Care Steward/Stewardess Tourist Class Name Role Phone Grace Cespedes DO Primary Care Pro vider Unavailable Encounter Details Date Type Department Care Team Description 08/19/2018 Telephone Adult Medicine [address] [address] Fred Hinds MD Social History Tobacco Use [...] encounter Miscellaneous Notes * Telephone Encounter - Fred Hinds MD - 08/19/2018 7:11 PM EST I called the patient today and left a message on the machine. Patient instructed to return my call.Re: FNA documented in this encounter Plan of Treatment Not on file documented as of this encounter Visit Diagnoses Not on filedocumented in this encounter Care Teams Steward/Stewardess Tourist Class Relationship Specialty Start Date End Date Grace Cespedes DO PCP - General Internal Medicine 01/09/14 documented as of this encounter
--- OUTSIDE RECORDS SUMMARY | 2025-05-07 11:15 | XMS_ITS | Clinical Summary ---
Author Organization [facility] Address [address] [place] [address] [place] [phone] Phone Care Team Providers Care Foot Miter Operator Name Role Phone Grace Ghotra DO Primary Car e Provider Allergies No known active allergies Medications levothyroxine (TIROSINT) 100 mcg Cap Take 25 mcg by mouth daily. Active hydroCHLOROthia zide (MICROZIDE) 12.5 mg capsule Take 1 capsule by mouth every morning. 04/24/2023 Active atenolol (TENORMIN) 50 mg tablet Take 1 tablet by mouth 2 (two) times a day. 04/24/2023 Active Family History Medical History Relation Comments Cancer Mother Hypertension Mother Relation Status Comments Father Mother Social History Tobacco Use Types Packs/Day Years Used Date Smoking Tobacco: Never Smokeless Tobacco: Never Tobacco Cessation:Counseling Given: Not Answered Alcohol Use Standard Drinks/Week Comments Not Currently 0 (1 standard drink = 0.6 oz pur e alcohol) Education Answer Date Recorded Are you interested in more education? Not on taylor e 05/17/2023 Are you concerned about learning? Not on file 05/17/2023 No 05/17/2023 No 05/17/2023 Digital Access Answer Date Recorded No 05/17/2023 No 05/17/2023 Reliable internet access at home? Not on file 05/17/2023 Device with a working camera? Not on file Comments Unknown Sex and Gender Information Value Date Recorded Sex Assigned at Not on file Legal Sex Female 11:49 AM EDT Gender Identity Not on file Sexual Orientation Not on file Last Filed Vital Signs Vital Sign Reading Time Taken Comments Blood Pressure 152/79 05/25/2023 8:49 AM EDT Pulse 67 05/25/2023 8:49 AM EDT Temperature - - Respiratory Rate - - Oxygen Saturation - - Inhaled Oxygen Concentration - - Weight 72.5 kg (159 lb 12.8 oz) 05/25/2023 8:49 AM EDT Height 153.7 cm (5' 0.5 ) 05/25/2023 8:49 AM EDT Body Mass Index 30.7 05/25/2023 8:49 AM EDT Plan of Treatment Health Maintenance Due Date Last Done Comments LIPID PANEL 1958 POTASSIUM LEVEL 1958 TSH LEVEL 1958 DEPRESSION SCREENING 1970 HEPATITIS C SCREENING 1976 SCREENING FOR DIABETES 1993 COLOGUARD 12/03/2003 COLONOSCOPY 12/03/2003 COLORECTAL CANCER SCREENING 12/03/2003 FIT TEST 12/03/2003 FOBT 12/03/2003 SIGMOIDOSCOPY 12/03/2003 VIRTUAL COLONOSCOPY 12/03/2003 PNEUMOCOCCAL VACCINES (50+ y ears) (1 of 1 - PCV) 2008 ZOSTER VACCINES (1 of 2) 2008 Adult Td,Tdap Booster 05/23/2019 05/23/2009 OSTEOPOROSIS SCREENING INITI AL (ONE-TIME) 12/03/2023 MAMMOGRAM 01/01/2025 01/01/2023 INFLUENZA VACCINE (#1) 2025 COVID-19 VACCINE ( - 2024-2 6 season) 2025 RSV VACCINE (1 - 1-dose 75+ series) 2033 SMOKING STATUS SCREENING (On ce After 26 Yrs) Completed 05/25/2023 HEPATITIS A VACCINES Aged Out No long er eligible based on patient's age to complete this topic HIB VACCINES Aged Out No longer eligi ble based on patient's age to complete this topic MENINGOCOCCAL VACCINES (ACWY) Aged Out No longer eligible based on patient's age to complete this topic MENINGOCOCCAL VACCINES (B) Aged Out N o longer eligible based on patient's age to complete this topic Medical Devices Not on file Insurance CROSS OUT OF STATE PPO OUT OF STATE PPO CROSS OUT OF STATE PPO BLUE CROSS OUT OF STATE PPO OUT OF STATE PPO [facility] OUT STATE PPO Care Teams Foot Miter Operator Relationship Specialty Start Date End Date Grace Ghotra DO [address] [place] [address] PCP - General Internal Medicine 05/17/23 Additional Source Comments The information contained in this document represents components of the legal health record. It is not the complete legal health record.[facility]
--- OUTSIDE RECORDS SUMMARY | 2025-05-07 11:15 | XMS_ITS | Encounter Summary ---
Author Organization [facility] Address [address] [place] [address] Care Team Providers Care Dry Cell And Battery Assembler Name Role Phone Grace Cespedes DO Primary Care Pro vider Unavailable Encounter Details Date Type Department Care Team Description 11/27/2018 Telephone Adult Medicine - [address] [address] Fred Hinds MD Social History Tobacco Use [...] on filedocumented in this encounter Care Teams Dry Cell And Battery Assembler Relationship Specialty Start Date End Date Grace Cespedes DO PCP - General Internal Medicine 01/09/14 documented as of this encounter
--- OUTSIDE RECORDS SUMMARY | 2025-05-07 11:15 | XMS_ITS | Encounter Summary ---
Author Organization [facility] Address [address] [place] [address] Care Team Providers Care Tailings Dam Laborer Name Role Phone Grace Cespedes DO Primary Care Pro vider Unavailable Encounter Details Date Type Department Care Team Description 10/05/2018 Release of Information Medical Records [address] [place] [id number] Abstract, Provider Social History Tobacco Use Types [...] on filedocumented in this encounter Care Teams Tailings Dam Laborer Relationship Specialty Start Date End Date Grace Cespedes DO PCP - General Internal Medicine 01/09/14 documented as of this encounter
--- OUTSIDE RECORDS SUMMARY | 2025-05-07 11:15 | XMS_ITS | Encounter Summary ---
Author Organization [facility] Address [address] [place] [address] Care Team Providers Care Improvement Advisor Name Role Phone Andrew Cowart MD Primary Care Provider [phone] [facility]ly [facility], Pcp Primary Care Provider Morgan Avalos MD Primary Care Provider Grace Daly DO Primary Care Pro vider Unavailable Encounter Details Date Type Department Care Team Description 01/30/2006 Hospital Medical Records [address] [place] [id number] Titi Sullivan MD Social History Tobacco Use Types Packs/Day [...] on filedocumented in this encounter Care Teams Improvement Advisor Relationship Specialty Start Date End Date Andrew Cowart MD [address] [place], [place] [phone] PCP - General 06/02/1993 08/16/11 [facility], Pcp [address] [place] [id number] PCP - General Internal Medicine 08/17/11 09/24/11 Morgan Harris MD [address] [place] [phone] PCP - General Internal Medicine 09/25/11 01/08/14 Grace Cespedes DO [address] [place] [address] PCP - General Internal Medicine 01/09/14 documented as of this encounter
--- OUTSIDE RECORDS SUMMARY | 2025-05-07 11:15 | XMS_ITS | Encounter Summary ---
Author Organization [facility] Address [address] [place] [address] Care Team Providers Care Ferris Wheel Attendant Name Role Phone Grace Cespedes DO Primary Care Pro vider Unavailable Encounter Details Date Type Department Care Team Description 07/30/2021 Funeral Pre Arrangement Specialist Report Medical Records [address] [place] [address] Noman Lagunas MD Social History Tobacco Use Types Packs/Day [...] on filedocumented in this encounter Care Teams Ferris Wheel Attendant Relationship Specialty Start Date End Date Grace Cespedes DO PCP - General Internal Medicine 01/09/14 documented as of this encounter
--- OUTSIDE RECORDS SUMMARY | 2025-05-07 11:15 | XMS_ITS | Encounter Summary ---
Author Organization [facility] Address [address] [place] [address] Care Team Providers Care Pony Worker Name Role Phone Grace Cespedes DO Primary Care Pro vider Unavailable Encounter Details Date Type Department Care Team Description 10/07/2018 Psych Nurse Report Medical Records [address] [place] [address] Sandhya Knowles MD Social History Tobacco Use [...] on filedocumented in this encounter Care Teams Pony Worker Relationship Specialty Start Date End Date Grace Cespedes DO PCP - General Internal Medicine 01/09/14 documented as of this encounter
== END 2025-05-07 10:53 | disposition home or self-care (01) ==
LOC: HO.HSMS 09:50
PROVIDERS: PCP Internal Medicine; Visit Provider Physician Assistant Medical
DX: G47.19 Other hypersomnia (principal); M54.42 Lumbago with sciatica, left side; G89.29 Other chronic pain
CPT/HCPCS: 99204

== ENCOUNTER → 2025-05-07 09:49 | Outpatient (BNVA) | payer MEDICARE, BC, SELFPAY | PROVIDERS: PCP Internal Medicine; Visit Provider Physician Assistant Medical | DX: G47.19 Other hypersomnia (principal); M54.42 Lumbago with sciatica, left side; G89.29 Other chronic pain | CPT/HCPCS: 99202 ==

== ENCOUNTER → 2025-08-01 08:17 | Outpatient (REF) | payer MEDICARE, SELFPAY ==
--- OUTSIDE RECORDS SUMMARY | 2025-08-01 08:21 | XMS_ITS | Encounter Summary ---
Author Organization [facility] Address [address] [place] [address] Care Team Providers Care Livestock Brands Inspector Name Role Phone Grace Ghotra DO Primary Care Pro vider Encounter Details Date Type Department Care Team ([facility] Contact Info) Description 07/27/2025 Results Follow-Up Gastroenterology - [place] [address] [facility] 175 [facility] [address] [place] [phone] Ana M Watson MD [address] [facility] [address] [place] [address] Social History Tobacco Use Types Packs/Day Years Used Date Smoking Tobacco: Former Cigarettes 0.3 Q uit: 02/16/1996 Smokeless Tobacco: Never Alcohol Use Standard Drinks/Week Comments No 0 (1 standard drink = 0.6 oz pur e alcohol) Interpersonal Safety Answer Date Record ed Physical Abuse Unrecognized value 06/18/2025 Verbal Abuse Unrecognized value 06/18/2025 Comments No Sex and Gender Information Value Date Recorded Sex Assigned at Not on file Legal Sex Female 8:54 PM EST Gender Identity Not on file Sexual Orientation Not on file documented as of this encounter Progress Notes * Ana M Watson MD - 07/27/2025 10:14 AM EST The polyp(s) that were removed during your colonoscopy were precancerous, but benign. Fortunately, we removed them and therefore, they will not cause any more problems in the future. Based on the number, the size, and the features of the polyp(s) removed, I recommend a follow-up colonoscopy in 7 years. Before, the seven years are due, we will send you a reminder in the mail asking you to contact our office to have the colonoscopy scheduled. I would like to personally thank you for allowing us to take care of you. Please don't hesitate to call us for any questions or concerns. Eileen Bah MD Board Certified Gastroenterology and Internal Medicine Transplant Hepatology [facility] documented in this encounter Plan of Treatment Not on file documented as of this encounter Goals Goal Patient Goal Type Associated Problems Recent Progress Patient-Stated? Author Autogenera marion Goal Care Plan Autogenerated Problem No Rebeca Godinez Curtis documented as of this encounter Visit Diagnoses Not on filedocumented in this encounter Additional Health Concerns Active Problems Noted Date Diagnosed Date Autogenerated Problem 05/03/2025 documented as of this encounter Care Teams Livestock Brands Inspector Relationship Specialty Start Date End Date Grace Ghotra DO [facility] [address] [place] [phone] PCP - General Internal Medicine 01/09/14 documented as of this encounter
--- OUTSIDE RECORDS SUMMARY | 2025-08-01 08:21 | XMS_ITS | Encounter Summary ---
Author Organization [facility] Address [address] [place] [address] Care Team Providers Care Motor Coach Supervisor Name Role Phone Grace Ghotra DO Primary Care Pro vider Encounter Details Date Type Department Care Team ([facility] Contact Info) Description 07/13/2025 Results Follow-Up Gastroenterology - [address] [phone] Brooklynn Dan NP 299 [facility] [address] [place] [address] Social History Tobacco Use Types Packs/Day Years [...] as of this encounter Progress Notes * Jailene Minaya MA - 07/13/2025 2:04 PM EST Last read by Odalis Gatica at 12:39PM on 07/13/2025. documented in this encounter Plan of Treatment Not on file documented as of this encounter Goals Goal Patient Goal Type Associated Problems Recent Progress Patient-Stated? Author Autogenera marion Goal Care Plan Autogenerated Problem No Herbert, Rebeca Curtis documented as of this encounter Visit Diagnoses Not on filedocumented in this encounter Additional Health Concerns Active Problems Noted Date Diagnosed Date Autogenerated Problem 05/03/2025 documented as of this encounter Care Teams Motor Coach Supervisor Relationship Specialty Start Date End Date Grace Gohtra DO [facility] [address] [place] [phone] PCP - General Internal Medicine 01/09/14 documented as of this encounter
--- OUTSIDE RECORDS SUMMARY | 2025-08-01 08:22 | XMS_ITS | Clinical Summary ---
Author Organization [facility] [address] [place] [address] [place] [phone] Phone Care Team Providers Care Sheet Tailer Name Role Phone SeanMiguel Ángel [facility] Pro vider Allergies No known active allergies Medications atenoloL (TENORMIN) 50 mg tablet Take 1 tablet (50 mg total) by mouth 2 (two) times a day. 1 Active hydroCHLOROthia zide (MICROZIDE) 12.5 mg capsule Take 1 capsule (12.5 mg total) by mouth 1 (one) time each day. 1 Active levothyroxine (SYNTHROID, LEVOTHROID) 25 mcg tablet Take 1 tablet (25 mcg total) by mouth 1 (one) time each day. for 120 days. 1 Active bisacodyL (DULCOLAX) 5 mg EC tablet Take 2 tablets by mouth right before beginning bowel prep. See instructions provided by the office 2 tablet 5 Active polyethylene glycol (Golytely) 236-22.74-6.74 -5.86 gram solution Take 4L by mouth once for one dose. May substitue any PEG. Starting at 2PM the day before your procedure drink 1 8oz glasses at your own pace until you complete half of the gallon. Finish 2nd half of the gallon at 8PM. 4000 mL 5 Active rosuvastatin (CRESTOR) 20 mg tablet Take 1 tablet (20 mg total) by mouth 1 (one) time each day. for 90 days 5 Active Active Problems Problem Noted Date Diagnosed [...] Encounters Date Type Department Care Team Description 07/27/2025 Results Follow-Up Gastroenterology - [place] [facility] 175 [facility] [address] [place] [phone] Ana M Watson MD 07/13/2025 Results Follow-Up Gastroenterology - [facility] 299 [facility] [address] [place] [phone] Brooklynn Dan NP 07/12/2025 1:40 PM EST Lab Draw Station - [address] [phone] History of Helicobacter pylori infection 06/18/2025 12:27 PM EST Anesthesia Event [facility] [address] [place] [phone] Lexus Starkey MD Steele, Matthew G, FEATHER MIXER 06/18/2025 10:59 AM EST - 06/18/2025 11:59 PM EST Hospital Encounter [facility] Endoscopy [address] [place] [phone] Ana M Watson MD Dasilva, John E, MD History of adenomatous polyp of colon Discharge Disposition: Home or Self Care from Last 3 Months Immunizations Immunization Administration Dates Next Due Tdap Tetanus diptheria acell ular pertussis (Boostrix; Adacel) 7yo and older 05/23/2009 Surgical History Surgery Date Site/Laterality Comments COLONOSCOPY 09/23/2009 PROCEDURE: CA COLONOSCOPY FLX DX W/COLLJ SPEC WHEN PFRMD; COMMENT: Normal OTHER SURGICAL HISTORY PROCEDURE: HISTORICAL TOTAL HYSTERECTOMY W/O BSO; COMMENT: fibroids OTHER SURGICAL HISTORY 01/23/2019 Left PROCEDURE: CA TOTAL THYROID LOBEC UNI W/CONTRALAT STOT LOBEC; [...] negative Multinodular goiter 05/20/2018 DX:Multinodu lar goiter Hypothyroid Hyperlipidemia Family History Medical History Relation Name Comments [...] Sign Reading Time Taken Comments Blood Pressure 140/72 06/18/2025 1:02 PM EST Pulse 67 06/18/2025 1:02 PM EST Temperature 36 C (96.8 F) 06/18/2025 12:42 PM EST Respiratory Rate 14 06/18/2025 1:02 PM EST Oxygen Saturation 100% 06/18/2025 1:02 PM EST Inhaled Oxygen Concentration - - Weight 69.4 kg (153 lb) 06/18/2025 12:14 PM EST Height 160 cm (5' 3 ) 06/18/2025 12:14 PM EST Body Mass Index 27.1 06/18/2025 12:14 PM EST Plan of Treatment Health Maintenance Due Date Last Done Comments Pneumococcal Vaccine: 50+ Years (1 of 1 - PCV) 2008 Zoster Vaccines (1 of 2) 2008 DTaP,Tdap,and Td Vaccines (2 - Td or Tdap) 05/23/2019 05/23/2009 Medicare Annual Wellness Visit 07/10/2022 Social Influencers of Health Screening 07/10/2022 Hypertension/CHF/CAD Annual BMP Blood Test 07/17/2022 01/03/2021 Depression Screening 08/02/2024 COVID-19 Vaccine ( - season) 2025 09/20/2021, 03/26/2021 Influenza Vaccine (#1) 2025 Cholesterol Screening (Lipid Panel) 08/17/2025 08/17/2020 Falls Risk Assessment 06/18/2026 06/18/2025 Osteoporosis Screening (Bone Density Screening) 01/05/2027 01/05/2022 Breast Cancer Screening 01/24/2027 01/25/20, 01/14/2024, 01/14/2024, Additional history exists Colorectal Cancer Screening: Colonoscopy 06/18/2032 06/18/2025, 05/29/2020 RSV Immunization Adult Patients (1 - 1-dose [...] Procedure Name Priority Date/Time Associated Diagnosis Comments HELICOBACTER PYLORI BREATH TEST Routine 07/12/2025 1:36 PM EST History of Helicobacter pylori infection COLONOSCOPY Routine 06/18/2025 12:41 PM EST History of adenomatous polyp of colon TISSUE EXAM Routine 06/18/2025 12:38 PM EST History of adenomatous polyp of colon MG MAMMO DIGITAL SCREENING W POP BILAT Routine 01/24/2025 3:24 PM EDT Encounter for screening mammogram for breast cancer DXA BONE DENSITY STUDY 1+ SITS AXIAL SKEL Routine 01/05/2022 3:48 PM EDT Asymptomatic menopausal state ANNUAL BMP BLOOD TEST Routine 01/03/2021 LIPID PANEL Routine 08/17/2020 HEPATITIS C SCREENING Routine 12/20/2012 from Last 3 Months or Most Recently Relevant to Health Maintenance Results * Helicobacter pylori breath test (07/12/2025 1:36 PM EST) H Pylori Breath Test Negative Negative LAB CHEMISTRY METHOD 07/13/2025 9:23 AM EST [facility] Breath Oral cavity structure / Unknown Non-blood Collection / Unknown 07/12/2025 1:36 PM EST 07/12/2025 1:36 PM EST us Brooklynn Dan [employer] [facility] BODY FLUIDS AND STOOLS ASHLEY DYER Final Result [facility] [address] [place] [address], [place] [phone] * COLONOSCOPY Anesthesia - MAC; [facility] ENDOSCOPY (06/18/2025 12:41 PM EST) Anatomical Region Laterality Modality Endoscopy 06/18/2025 12:2 7 PM EST Impressions 06/18/2025 12:43 PM EST - One 3 mm polyp in the sigmoid colon, removed with a cold snare. Resected and retrieved. - Internal hemorrhoids. Recommendation: - Await pathology results. - Repeat colonoscopy in 7 years for surveillance. Narrative 06/18/2025 12:43 PM EST [facility] GI Patient Name: Belen Gatica Procedure Date: 06/18/2025 12:27 PM Date of : 1960 Age: 64 Gender: Female Note Status: Finalized Attending MD: Ana M Watson MD, Procedure Date No Time: 06/18/2025 Procedure: Colonoscopy Indications: High risk colon cancer surveillance: Personal history of colonic polyps Providers: Ana M Watson MD Referring MD: Ana M Watson MD Medicines: Monitored Anesthesia Care Complications: No immediate complications. Estimated blood loss: Minimal. Estimated Blood Loss: Estimated blood loss was minimal. Procedure: Pre-Anesthesia Assessment: - Prior to the procedure, a History and Physical was performed, and patient medications and allergies were reviewed. The patient is competent. The risks and benefits of the procedure and the sedation options and risks were discussed with the patient. All questions were answered and informed consent was obtained. Patient identification and proposed procedure were verified by the physician, the nurse, the lumber tailer and the hazmat technician in the pre-procedure area in the endoscopy suite. Mental Status Examination: alert and oriented. Airway Examination: normal oropharyngeal airway and neck mobility. Respiratory Examination: clear to auscultation. CV Examination: normal. Prophylactic Antibiotics: The patient does not require prophylactic antibiotics. Prior Anticoagulants: The patient has taken no anticoagulant or antiplatelet agents. ASA Grade Assessment: II - A patient with mild systemic disease. After reviewing the risks and benefits, the patient was deemed in satisfactory condition to undergo the procedure. The anesthesia plan was to use monitored anesthesia care (MAC). Immediately prior to administration of medications, the patient was re-assessed for adequacy to receive sedatives. The heart rate, respiratory rate, oxygen saturations, blood pressure, adequacy of pulmonary ventilation, and response to care were monitored throughout the procedure. The physical status of the patient was re-assessed after the procedure. After I obtained informed consent, the scope was passed under direct vision. Throughout the procedure, the patient's blood pressure, pulse, and oxygen saturations were monitored continuously. The Olympus Colonoscope was introduced through the anus and advanced to the cecum, identified by appendiceal orifice and ileocecal valve. The colonoscopy was performed without difficulty. The patient tolerated the procedure well. The quality of the bowel preparation was good. Findings: The perianal and digital rectal examinations were normal. A 3 mm polyp was found in the sigmoid colon. The polyp was sessile. The polyp was removed with a cold snare. Resection and retrieval were complete. Estimated blood loss was minimal. Internal hemorrhoids were found during retroflexion. The hemorrhoids were Grade I (internal hemorrhoids that do not prolapse). Procedure Code(s): --- Professional --- 20896, Colonoscopy, flexible; with removal of tumor(s), polyp(s), or other lesion(s) by snare technique Diagnosis Code(s): --- Professional --- D12.5, Benign neoplasm of sigmoid colon CPT copyright 2020 [employer]. All rights reserved. The codes documented in this report are preliminary and upon dairy feed sales consultant review may be revised to meet current compliance requirements. Ana M Watson MD 06/18/2025 12:43:03 PM This report has been signed electronically.Ana M Watson MD Number of Addenda: 0 Note Initiated On: 06/18/2025 12:27 PM Scope Withdrawal Time: 0 hours 6 minutes 9 seconds Scope In: 12:32:42 PM Scope Out: 12:41:25 PM Endoscopy Department at [facility] - [address] [place] [phone] Procedure Note Ana M Waston MD - 06/18/2025 [facility] GI Patient Name: Belen Gatica Procedure Date: 06/18/2025 12:27 PM Date of : 1960 Age: 64 Gender: Female Note Status: Finalized Attending MD: Ana M Watson MD, Procedure Date No Time: 06/18/2025 Procedure: Colonoscopy Indications: High risk colon cancer surveillance: Personalhistory of colonic polyps Providers: Ana M Watson MD Referring MD: Ana M Watson MD Medicines: Monitored Anesthesia Care Complications: No immediate complications. Estimated blood loss: Minimal. Estimated Blood Loss: Estimated blood loss was minimal. Procedure: Pre-Anesthesia Assessment: - Prior to the procedure, a History and Physicalwas performed, and patient medications and allergieswere reviewed. The patient is competent. The risks and benefits of the procedure and the sedation optionsand risks were discussed with the patient. Allquestions were answered and informed consent was obtained. Patient identification and proposed procedure were verified by the physician, the nurse, theanesthetist and the hazmat technician in the pre-procedure area in the endoscopy suite. Mental Status Examination: alertand oriented. Airway Examination: normal oropharyngeal airway and neck mobility. Respiratory Examination: clear to auscultation. CV Examination: normal. Prophylactic Antibiotics: The patient does notrequire prophylactic antibiotics. Prior Anticoagulants: The patient has taken no anticoagulant or antiplatelet agents. ASA Grade Assessment: II - A patient withmild systemic disease. After reviewing the risks and benefits, the patient was deemed in satisfactory condition to undergo the procedure. The anesthesia plan was to use monitored anesthesia care (MAC). Immediately prior to administration of medications, the patient was re-assessed for adequacy to receive sedatives. The heart rate, respiratory rate, oxygen saturations, blood pressure, adequacy of pulmonary ventilation, and response to care were monitored throughout the procedure. The physical status ofthe patient was re-assessed after the procedure. After I obtained informed consent, the scope was passed under direct vision. Throughout theprocedure, the patient's blood pressure, pulse, and oxygen saturations were monitored continuously. TheOlympus Colonoscope was introduced through the anus and advanced to the cecum, identified by appendiceal orifice and ileocecal valve. The colonoscopy was performed without difficulty. The patient tolerated the procedure well. The quality of the bowel preparation was good. Findings: The perianal and digital rectal examinations were normal. A 3 mm polyp was found in the sigmoid colon. Thepolyp was sessile. The polyp was removed with a coldsnare. Resection and retrieval were complete. Estimatedblood loss was minimal. Internal hemorrhoids were found duringretroflexion. The hemorrhoids were Grade I (internal hemorrhoids that do not prolapse). Procedure Code(s): --- Professional --- 34993, Colonoscopy, flexible; with removal of tumor(s), polyp(s), or other lesion(s) by snare technique Diagnosis Code(s): --- Professional --- D12.5, Benign neoplasm of sigmoid colon CPT copyright 2020 [employer]. All rights reserved. The codes documented in this report are preliminary and upon dairy feed sales consultant reviewmay be revised to meet current compliance requirements. Ana M Watson MD 06/18/2025 12:43:03 PM This report has been signed electronically.Ana M Watson MD Number of Addenda: 0 Note Initiated On: 06/18/2025 12:27 PM Scope Withdrawal Time: 0 hours 6 minutes 9 seconds Scope In: 12:32:42 PM Scope Out: 12:41:25 PM Endoscopy Department at [facility] - [address] [place] [phone] IMPRESSION: - One 3 mm polyp in the sigmoid colon, removed with a cold snare. Resected and retrieved. - Internal hemorrhoids. Recommendation: - Await pathology results. - Repeat colonoscopy in 7 years for surveillance. us Ana M Watson MD GI~PROCEDURE ORDERABLES Fin al Result * Tissue exam (06/18/2025 12:38 PM EST) Final Diagnosis Polyp, sigmoid colon, polypectomy: - Tubular adenoma. 06/19/2025 10:57 AM EST [facility] at 1057 EST Gross Description A. Large Intestine, Sigmoid Colon, polyp x1: Labeled Sig colon polyp x 1 . Received in formalin are two irregular pink-white mucosal tissue fragments, measuring 0.1 cm and 0.5 cm in greatest dimension, which are wrapped in paper and submitted in toto in one cassette, two pieces, multiple levels on one slide. JOSE 06/19/2025 10:57 AM EST [facility] Disclaimer Unless otherwise specified, all tissue is 10% NB formalin fixed and paraffin embedded. 06/19/2025 10:57 AM EST [facility] Tissue Sigmoid colon structure / Unknown 06/18/2025 12:38 PM EST 06/18/2025 1:57 PM EST us Ana M Watson MD LAB PATHOLOGY ORDERABLES Fi nal Result [facility] [address] [place] [address], * MG Mammo Digital Screening w Pop bilat (01/24/2025 3:24 PM EDT) Anatomical Region Laterality Modality Breast Bilateral Mammography 01/25/2025 1:50 PM EDT Impressions 01/25/2025 2:59 PM EDT 1. No mammographic evidence of malignancy 2. Scattered fibroglandular tissue BI-RADS CATEGORY: 2 - BENIGN RECOMMENDATION: Screening bilateral mammogram is recommended in 1 year. Mammo Location: [facility], [address] [place] [address], [phone], . -------- FINAL REPORT -------- Dictated By: Tiffanie Roman Dictated Date: 01/25/2025 13:50 ET Assigned Physician: Tiffanie Roman Reviewed and Electronically Signed By: Tiffanie Roman Signed Date: 01/25/2025 14:59 ET Workstation ID: [id number] Transcribed By: Self Edit Transcribed Date: 01/25/2025 [...] is recommended in 1 year. Mammo Location: [facility], [address] [place] [address], [phone], . -------- FINAL REPORT -------- Dictated By: Tiffanie Roman Dictated Date: 01/25/2025 13:50 ET Assigned Physician: Tiffanie Roman Reviewed and Electronically Signed By: Tiffanie Roman Signed Date: 01/25/2025 14:59 ET Workstation ID: [id number] Transcribed By: Self Edit Transcribed Date: 01/25/2025 13:52 ET us Grace Ghotra DO IM BI PROCEDURES Final Result * DXA BONE [...] (World Health Organization Fracture Risk Assessment) [facility] Department of Internal Medicine recommends [...] alternative screening schedule based on giuseppe Gayle., [facility] August 20, 2011 for patients with [...] years. (World HealthOrganization Fracture Risk Assessment) [facility] Department of Internal Medicine recommendsusing [...] alternative screening schedule based on giuseppe Gayle., [facility] for patients with osteopenia (based on hip BMD T-score) is as follows: * advanced osteopenia (T scores -2.00 to -2.49), BMD testing every year * moderate osteopenia (T scores -1.50 to -1.99), BMD testing every 5years mild osteopenia or normal BMD (T scores -1.50 and higher), BMD testingevery 15 years Grace Ghotra DO IMG DXA PROCEDURE S Final Result * Annual BMP Blood Test (01/03/2021) [facility] Annual BMP Blood Test Abstracted Result [facility] Historical Provider HEALTH MAINTENANCE Final Result * (ABNORMAL) Lipid panel (08/17/2020) [facility] LDL/HDL Ratio 4 0 - 4 Triglycerides 281(A) 0 - 150 mg/dL Cholesterol 244(A) 0 - 200 mg/dL HDL 57 >=40 mg/dL LDL Cholesterol 131(A) 0 - 100 mg/dL Blood Venous blood specimen / Unknown Result [facility] Historical Provider LAB BLOOD ORDERABLES Doreen l Result * Hepatitis C Screening (12/20/2012) [facility] Hepatitis C Screening Abstracted Result [facility] Provider HEALTH MAINTENANCE Final Result from Last 3 Months or Most Recently Relevant to Health Maintenance Additional Health Concerns Active Problems Noted Date Diagnosed Date Autogenerated Problem 05/03/2025 Insurance MEDICARE [facility] Care Teams Sheet Tailer Relationship Specialty Start Date End Date Grace Ghotra DO [facility] [address] [place] [phone] PCP - General Internal Medicine 01/09/14
--- OUTSIDE RECORDS SUMMARY | 2025-08-01 08:22 | XMS_ITS | Clinical Summary ---
Author Organization [facility] Address [address] [place] [address] [place] [phone] Phone Care Team Providers Care Artificial Intelligence Specialist Name Role Phone Grace Ghotra DO Primary [...] OF STATE PPO OUT OF STATE PPO BLUE CROSS OUT OF STATE PPO BLUE CROSS OUT OF STATE PPO OUT OF STATE PPO PPO Care Teams Artificial Intelligence Specialist Relationship Specialty Start Date End Date Grace Ghotra DO [address] [place] [phone] PCP - General Internal Medicine 05/17/23 Additional Source Comments The information contained in this document represents components of the legal health record. It is not the complete legal health record.[facility]
--- OUTSIDE RECORDS SUMMARY | 2025-08-01 08:22 | XMS_ITS | Patient Health Record ---
Author Organization [facility] Address [address] [place] [address] Care Team Providers Care Financial Administrative Assistant Name Role Phone LIANA JANSEN Primary Care Provide r [phone] Allergies No Known Allergies Reason For Referral Reason (faxed 12/27/24) any provider for eval /tx (prefers [facility] if poss) Diagnosis 1 Witnessed apneic spe lls (R06.81) Referral Organization [facility] Referring Provider First Name LIANA Referring Provider Last Name HALI ZABALA Referring Provider Speciality Internal M edicine Referred Provider MICHAEL [place] Referred Provider Specialty Neurology General Notes Yuni NERI MA 12/01 09:37:30 PM > faxed to [facility] , F: [phone], Yuni NERI [place] 12/27/2024 07:37:16 AM > refaxed to Dr Ma's office , F: [phone] Clinical Notes LIANA JANSEN 05/15/2025 10:28:49 AM >pt seen changed to addressed Referral Priority Routine Medications Medication SIG (Take, Route, Frequency, Duration) Notes Start Date End Date Status Turmeric 500 MG Capsule as directed Orally liquid drops Active Levothyroxine Sodium 25 MCG Tablet TAKE 1 TABLET BY MOUTH EVERY DAY IN THE MORNING ON EMPTY STOMACH FOR 90 DAYS; Duration: 90 Active hydroCHLOROthiazide 12.5 MG Capsule TAKE 1 CAPSULE BY MOUTH EVERY DAY; Duration: 90 Active Cyclobenzaprine HCl 10 MG Tablet 1 tablet at bedtime as needed Orally Once a day; Duration: 30 days Active Rosuvastatin Calcium 20 MG Tablet TAKE 1 TABLET BY MOUTH EVERY DAY FOR 90 DAYS; Duration: 90 Active Atenolol 50 MG Tablet TAKE 1 TABLET BY MOUTH TWICE A DAY; Duration: 90 Active Social History Tobacco Use: Social History Observation Description Date Details (start date - stop date) Never Smoker NA - NA Social History Drug/Alcohol: Social Info Question Answer Notes Alcohol Screen Did you have a drink containing alcohol in the past year? Yes How often did you have a drink containing alcohol in the past year? Monthly or less (1 point) How many drinks did you have on a tpical day when you were drinking in the past year? 1 or 2 (0 points) How often did you have six or more drinks on one occassion in the past year? Never (0 points) Points 1 Interpretation Negative Tobacco Use: Social Info Question Answer Notes Smoking Are you a: never smoker Additional Details Category Social Info Options Details General Occupation: Vice Chair asbestos exposure: no Past year's travels: Yoga alcohol use: no drug use: no Hobbies/Exercise habits: none 20 21 Coffee/Tea/Soda: yes 1-2 coffee a da y, 1-5 cups of tea a day, x1 soda a week Marital Status experience no Living with : [employer] none smokers in household no Former Smok er as teenager Section Notes: Last Mammo: 09/2022- normal - [facility] Last Colonscopy: 2019- normal - 10y plan- [facility] Last Mammo: 09/2022- normal - [facility] Last Colonscopy: 2019- normal - 10y plan- [facility] Last Mammo: 09/2022- normal - [facility] Last Colonscopy: 2019- normal - 10y plan- [facility] Last Mammo: 09/2020- normal - [facility] Colonscopy: 2019- normal - 10y plan- [facility] Last Mammo: 09/2020- normal - [facility] Last Colonscopy: 2019- normal - 10y plan- [facility] Last Mammo: 09/2020- normal - [facility] Last Colonscopy: 2019- normal - 10y plan- [facility] Last Mammo: 09/2020- normal - [facility] Last Colonscopy: 2019- normal - 10y plan- [facility] Last Mammo: 09/2022- normal - [facility] Last Colonscopy: 2020- normal - 10y plan- [facility] Problems Problem Type SNOMED Code ICD Code Onset Dates Problem Status W/U Status Risk Notes Problem Vitamin D deficiency (52025415) Vitamin D deficiency (E55.9) Active confirmed Problem Vitamin D deficiency (63300517) Vitamin D deficiency (E55.9) Active confirmed Problem Thyroid nodule (699756125) Thyroid nodule (E04.1) Active confirmed Problem Acquired hypothyroidism (263916688) Acquired hypothyroidism (E03.9) Active confirmed Problem Family history of cancer (996328648) Family history of cancer (Z80.9) Active confirmed Problem Non-toxic multinodular goiter (66316355) Multinodular thyroid (E04.2) Active confirmed due for [place] 2020 Problem Tubular adenoma of colon (330473397) Tubular adenoma of colon (D12.6) Active confirmed 0 Problem Daytime somnolence (282640027767) Daytime somnolence (R40.0) Active confirmed Problem History of partial thyroidectomy (226565739) H/O partial thyroidectomy (E89.0) Active confirmed Problem Primary hypertension (19256219) Primary hypertension (I10) Active confirmed Problem Primary hypertension (88005237) Primary hypertension (I10) Active confirmed Problem High cholesterol (85084428) High cholesterol (E78.00) Active confirmed Problem Bunion (739751894) Bunion (M21.619) Active confirmed Problem Osteopenia (735926589) Osteopenia, unspecified location (M85.80) Active confirmed Problem Dyslipidemia (649541060) Dyslipidemia (E78.5) Active confirmed Problem Sciatica (98792196) Low back pain with left-sided sciatica, unspecified back pain laterality, unspecified chronicity (M54.42) Active confirmed Problem History of colonoscopy (923659852219) History of colonoscopy (Z98.890) 025 Active confirmed [facility]; rpt 7 yrs Problem Follicular lesion of thyroid (2888351821) Follicular lesion of thyroid (E07.89) Active confirmed Problem History of radiation exposure (281689716) Personal history of radiation exposure (Z92.3) Active confirmed Problem Genetic test (procedure) (929697072) Genetic testing (Z13.79) Active confirmed neg 2014 Vital Signs Blood pressure diastolic 87 mm Hg 05/15/2025 Height 62.5 in 05/15/2025 Blood pressure systolic 133 mm Hg 05/15/2025 Weight 161 lbs 05/15/2025 BMI 28.97 kg/m2 05/15/2025 Encounters Encounter Location Date Provider Diagnosis [facility] [address] [place] [address] 05/15/2025 LIANA JANSEN Primary hypertension I10 ; Acquired hypothyroidism E03.9 ; High cholesterol E78.00 ; Daytime somnolence R40.0 and Multinodular thyroid E04.2 [facility] [address] [place] [address] 11/06/2024 LIANA JANSEN High cholesterol E78.00 ; Primary hypertension I10 ; Tubular adenoma of colon D12.6 ; Multinodular thyroid E04.2 ; Acquired hypothyroidism E03.9 ; Osteopenia, unspecified location M85.80 ; Vitamin D deficiency E55.9 ; History of Helicobacter pylori infection Z86.19 ; Snoring R06.83 and Witnessed apneic spells R06.81 Assessments Encounter Date Diagnosis (ICD Code) Assessment Notes Treatment Notes Treatment Clinical Notes Section Notes 05/15/2025 Primary hypertension (ICD-10 - I10) cont current regimen, has been tolerating well 11/06/2024 High cholesterol (ICD-10 - E78.00) had myalgia on atorvastatin Will switch to rosuvastatin in addition to heart healthy diet. Will monitor fasting lipids. 11/06/2024 Primary hypertension (ICD-10 - I10) Has been tolerating current regimen well and will continue 05/15/2025 Acquired hypothyroidism (ICD-10 - E03.9) cont current dose of thyroid med and fu as planned 05/15/2025 High cholesterol (ICD-10 - E78.00) only took chol meds for about 6 wks total since last visit rx snt in for refills cont current dose and will delroy labs in a few mo and adjust as needed 11/06/2024 Tubular adenoma of colon (ICD-10 - D12.6) due for colonoscopy this year [facility] has already reached out to her about this. 11/06/2024 Multinodular thyroid (ICD-10 - E04.2) cont fu w/ endo dr jeong 05/15/2025 Daytime somnolence (ICD-10 - R40.0) see [facility] neuro ordered study which is pending 05/15/2025 Multinodular thyroid (ICD-10 - E04.2) seeing endo had bx 04/2024 AUS w/ benign affirma 11/06/2024 Acquired hypothyroidism (ICD-10 - E03.9) doing well on current dose of med and will cont 11/06/2024 Osteopenia, unspecified location (ICD-10 - M85.80) cont supplements and regular weight bearing exercise will monitor dexa 11/06/2024 Vitamin D deficiency (ICD-10 - E55.9) cont supplements 11/06/2024 History of Helicobacter pylori infection (ICD-10 - Z86.19) treated by [facility] a few months ago (prior to tx had minimal symptoms) 11/06/2024 Snoring (ICD-10 - R06.83) have ref to sleep med 11/06/2024 Witnessed apneic spells (ICD-10 - R06.81) 05/15/2025 Other colonoscopy [facility] june 2025 11/06/2024 Other mammo utd [facility] Plan Of Treatment Pending Test Test Name Order Date Bone Density 2 site DEXA 05/08/2024 Future Test Test Name Order Date HEPATIC FUNCTION PANEL 10/30/2021 Urinalysis w/ [employer] 2021 LIPID PROFILE 04/30/2022 TSH 04/30/2022 CBC W/ AUTOMATED DIFF 04/30/2022 HEPATIC FUNCTION PANEL 04/30/2022 BASIC METABOLIC PANEL 04/30/2022 25 OH Vitamin D 04/30/2022 Sleep Study 05/06/2023 LIPID PANEL 05/06/2023 BASIC METABOLIC PANEL 05/06/2023 HEPATIC FUNCTION PANEL 05/06/2023 25OH VITAMIN D 05/06/2023 CBC (COMPLETE BLOOD COUNT) WITH DIFF 11/2022 TSH 05/06/2023 [id number] 05/15/2025 Hepatic Function Panel [id number] 2024 LP+Non-HDL Cholesterol-[id number] 05/15/2025 BMP8+eGFR-[id number] 05/15/2025 Next Appt Details Provider Name:LIANA TELLEZ, 11/05/2025 12:30:00 PM, [address] [place], [address], Insurance Providers Payer Name Payer Address Payer Phone Subscriber Number Group Number Insured Name Patient Relationship to Insured Coverage Start Date Coverage End Date [employer]IC[employer] [address] [place] [address] [id number] BELEN FITZGERALD Self - patient is the insured 4 [employer] [facility] [address] [place] [address] [phone] [id number] BELEN FITZGERALD Self - patient is the insured 4 Medical (General) History Medical History History ICD Code High Blood Pressure Thyroid Surgical History Surgery Date(Month/Year) Hospitalization History Reason Date(Month/Year)
--- OUTSIDE RECORDS SUMMARY | 2025-08-01 08:22 | XMS_ITS | Clinical Summary ---
Author Organization [facility] Prior to 12/30/[address] [place] [address] Care Team Providers Care Door Fitter Name Role Phone Grace Cespedes DO Primary [...] age to complete this topic Care Teams Door Fitter Relationship Specialty Start Date End Date Grace Cespedes DO PCP - General Drupal Web Developer 03/30/19
== END ==
LOC: HO.SL 08:17
PROVIDERS: PCP Internal Medicine; Visit Provider Physician Assistant Medical
DX: G47.19 Other hypersomnia (principal)
CPT/HCPCS: 95806

== ENCOUNTER → 2025-08-01 08:33 | Outpatient (BNV) | payer MEDICARE, SELFPAY | PROVIDERS: PCP Internal Medicine; Visit Provider Psychiatry & Neurology Neurology | DX: G47.33 Obstructive sleep apnea (adult) (pediatric) (principal) | CPT/HCPCS: 95806 ==